=== PATIENT | male | born 1965 | race Caucasian/White ===

== ENCOUNTER 2022-08-23 15:17 | Inpatient (IN) | payer BC, OTHER ==
[2022-08-23 15:55] VITALS: BMI 36.2
[2022-08-23] MEDS ORDERED: ACETAMINOPHEN 1000 MG/100 ML BAG IVPB ONE (16:01)
[2022-08-23] MEDS ORDERED: ACETAMINOPHEN INJECTION 100 ML IVPB ONE (16:10)
[2022-08-23] MEDS ORDERED: LACTATED RINGERS SOLUTION 1000 ML INFUS.BAG IV ONE (16:11)
[2022-08-23] MEDS: ALBUTEROL SO4 2.5/IPRATROPIUM 0.5 INH SOL 3 ML VIAL.NEB. NEB SCH ×2 (16:50→17:15)
[2022-08-23] MEDS ORDERED: ALBUTEROL SO4 2.5/IPRATROPIUM 0.5 INH SOL 3 ML VIAL.NEB. NEB ONE (16:50)
[2022-08-23 17:01] LABS: BASO % 0.4 % (0-2.0); EOS % 0.4 % (0-4.5); HEMATOCRIT 48.8 % (35.4-49); LYMPH % 2.5 % (8-40); MCH 29.1 pg (25.7-33.7); MCHC 32.7 g/dl (32.0-35.9); MEAN PLT VOLUME 7.3 fl (7.5-11.1); MONO % 3.6 % (3.8-10.2); NEUT % 93.1 % (42.8-82.8); PLATELET COUNT 146 10^3/uL (134-434); RBC 5.49 M/mm3 (4.00-5.60); RDW 15.9 % (11.9-15.9); URINE APPEARANCE CLEAR; URINE BILIRUBIN NEGATIVE (NEGATIVE); URINE COLOR YELLOW; URINE GLUCOSE (UA) NEGATIVE (NEGATIVE); URINE KETONE NEGATIVE (NEGATIVE); URINE LEUK ESTERASE NEGATIVE (NEGATIVE); URINE NITRITE NEGATIVE (NEGATIVE); URINE PROTEIN NEGATIVE (NEGATIVE); URINE UROBILINOGEN 0.2 mg/dL (0.2-1.0); WHITE BLOOD COUNT 14.9 K/mm3 (4.0-10.0)
[2022-08-23 17:05] LABS: VENOUS BASE EXCESS 0.9 mmol/L (-2-2); VENOUS O2 SATURATION 47.9 % (70-80); VENOUS PCO2 46.6 mmHg (38-52); VENOUS PH 7.376 (7.310-7.410)
[2022-08-23 17:13] LABS: INR 0.98 (0.83-1.09); PROTHROMBIN TIME (PATIENT) 11.3 SEC (9.7-13.0)
[2022-08-23 17:16] LABS: ACTIVATED PTT 26.2 SECONDS (25.2-36.5)
[2022-08-23 17:25] LABS: ALBUMIN 3.8 g/dl (3.4-5.0); CALCIUM 8.9 mg/dL (8.5-10.1)
[2022-08-23 17:28] LABS: CREATININE 0.9 mg/dL (0.55-1.3)
[2022-08-23 17:30] LABS: BILIRUBIN,TOTAL 1.4 mg/dL (0.2-1); TOT PROT 6.3 g/dl (6.4-8.2)
[2022-08-23 17:33] LABS: N-TERMINAL BNP 112.8 pg/ml (5-125)
[2022-08-23] MEDS ORDERED: AZITHROMYCIN IVPB 500 MG in DEXTROSE 5%-WATER - 250 ML IVPB ONE (17:34)
[2022-08-23] MEDS ORDERED: CEFTRIAXONE 1,000 MG in DEXTROSE 5%-WATER - 50 ML IVPB ONE (17:34)
[2022-08-23] MEDS ORDERED: CEFTRIAXONE 1 GM/50 ML BAG ONE (17:41)
[2022-08-23 18:06] LABS: ANISOCYTOSIS 2+; MACROCYTOSIS 0
[2022-08-23] MEDS ORDERED: AZITHROMYCIN IVPB 500 MG/250 ML BAG IVPB ONE (18:10)
[2022-08-23 21:13] LABS: ARTERIAL BLD GAS O2 SATURATION 96.6 % (95-98); ARTERIAL BLOOD GAS BASE EXCESS 1.1 mmol/L (-2-2); ARTERIAL BLOOD GAS PO2 84.4 mmHg (80-100); ARTERIAL BLOOD GAS pH 7.429 (7.350-7.450)
[2022-08-23 21:15] LABS: ALLENS TEST POSITIVE
[2022-08-23] MEDS ORDERED: PIPERACILLIN/TAZOB 3.375 GM 3.375 GM/50 ML BAG IVPB ONE (21:39)
[2022-08-23] MEDS ORDERED: VANCOMYCIN 1 GRAM (PRE-DOCKED) 1,000 MG/250 ML BAG IVPB SCH (21:45)
[2022-08-23] MEDS ORDERED: VANCOMYCIN 1,000 MG in DEXTROSE 5%-WATER - 250 ML IVPB SCH (21:45)
[2022-08-23] MEDS: PIPERACILLIN/TAZOB 3.375 GM 3.375 GM in DEXTROSE 5%-WATER - 50 ML IVPB SCH ×2 (21:49→21:56)
[2022-08-23] MEDS ORDERED: VANCOMYCIN/WATER FOR INJ (PEG) 1,000 MG/200 ML BAG IVPB ONE (22:08)
[2022-08-24] MEDS ORDERED: predniSONE 10 MG TABLET (UD) PO SCH (01:00)
[2022-08-24] MEDS ORDERED: OSELTAMIVIR PHOSPHATE 45 MG CAPSULE PO SCH (02:15)
[2022-08-24] MEDS ORDERED: BUDESONIDE/FORMETEROL FUMARATE 160/4.5 mcg INHALER IH ONE (03:00)
[2022-08-24] MEDS ORDERED: OSELTAMIVIR PHOSPHATE 75 MG CAPSULE PO SCH (03:28)
[2022-08-24] MEDS ORDERED: predniSONE 10 MG TABLET (UD) ONE (04:32)
[2022-08-24 07:36] LABS: HEMATOCRIT 49.4 % (35.4-49); HEMOGLOBIN 16.2 GM/dL (11.7-16.9); MCH 29.1 pg (25.7-33.7); MCHC 32.8 g/dl (32.0-35.9); MEAN CELL VOLUME 88.6 fl (80-96); MEAN PLT VOLUME 7.5 fl (7.5-11.1); PLATELET COUNT 133 10^3/uL (134-434); RBC 5.57 M/mm3 (4.00-5.60); RDW 16.2 % (11.9-15.9); WHITE BLOOD COUNT 14.5 K/mm3 (4.0-10.0)
[2022-08-24 08:04] LABS: ALBUMIN 3.5 g/dl (3.4-5.0); CALCIUM 9.3 mg/dL (8.5-10.1); CREATININE 0.7 mg/dL (0.55-1.3)
[2022-08-24 08:05] LABS: BLOOD UREA NITROGEN 10.2 mg/dL (7-18); MAGNESIUM 1.8 mg/dL (1.8-2.4)
[2022-08-24 08:06] LABS: BILIRUBIN,TOTAL 1.8 mg/dL (0.2-1); TOT PROT 6.3 g/dl (6.4-8.2)
[2022-08-24 08:54] LABS: ANISOCYTOSIS 0; HELMET CELLS 0; HOWELL-JOLLY BODIES 0; MACROCYTOSIS 0; OVALOCYTE 0; ROULEAU 0; SICKELED CELLS 0; TARGET CELLS 0; TEAR DROP CELLS 0; TOXIC GRANULATION 0
[2022-08-24] MEDS ORDERED: CLOPIDOGREL BISULFATE 75 MG TABLET (FP) ONE (09:03)
[2022-08-24] MEDS ORDERED: predniSONE 20 MG TABLET (UD) ONE ×2 (09:03→22:18)
[2022-08-24] MEDS ORDERED: ENOXAPARIN NA (PORCINE) 40 MG/0.4 ML DISP.SYRIN SQ ONE (09:04)
[2022-08-24] MEDS ORDERED: OSELTAMIVIR PHOSPHATE 75 MG CAPSULE ONE ×2 (09:04→22:18)
[2022-08-24] MEDS: OSELTAMIVIR PHOSPHATE 75 MG CAPSULE PO SCH ×2 (09:51→22:28)
[2022-08-24] MEDS: ENOXAPARIN NA (PORCINE) 40 MG/0.4 ML DISP.SYRIN SQ SCH (09:51)
[2022-08-24] MEDS: predniSONE 20 MG TABLET (UD) PO SCH ×2 (09:51→22:28)
[2022-08-24] MEDS: CLOPIDOGREL BISULFATE 75 MG TABLET (FP) PO SCH (09:51)
[2022-08-24] MEDS: TIOTROPIUM BROMIDE 2.5 MCG (SPIRIVA) RESPIMAT INHALER IH SCH (10:45)
[2022-08-24] MEDS ORDERED: CEFTRIAXONE 1 GM in DEXTROSE 5%-WATER - 50 ML IVPB SCH (12:30)
[2022-08-24] MEDS ORDERED: ACETAMINOPHEN 500 MG TABLET (FP) ONE (14:32)
[2022-08-24] MEDS: ACETAMINOPHEN 500 MG TABLET (FP) PO PRN (14:36)
[2022-08-24] MEDS ORDERED: PIPERACILLIN/TAZOB 3.375 GM 3.375 GM/50 ML BAG IVPB ONE (18:23)
[2022-08-24] MEDS: PIPERACILLIN/TAZOB 3.375 GM 3.375 GM in DEXTROSE 5%-WATER - 50 ML IVPB SCH ×3 (18:28→18:33)
[2022-08-25] MEDS: PIPERACILLIN/TAZOB 3.375 GM 3.375 GM in DEXTROSE 5%-WATER - 50 ML IVPB SCH (01:04)
[2022-08-25] MEDS: ACETAMINOPHEN 500 MG TABLET (FP) PO PRN ×2 (07:22→13:27)
[2022-08-25] MEDS: ENOXAPARIN NA (PORCINE) 40 MG/0.4 ML DISP.SYRIN SQ SCH (09:53)
[2022-08-25] MEDS: TIOTROPIUM BROMIDE 2.5 MCG (SPIRIVA) RESPIMAT INHALER IH SCH (09:53)
[2022-08-25] MEDS: CEFTRIAXONE 1 GM in DEXTROSE 5%-WATER - 50 ML IVPB SCH (09:53)
[2022-08-25] MEDS: OSELTAMIVIR PHOSPHATE 75 MG CAPSULE PO SCH ×2 (09:54→22:06)
[2022-08-25] MEDS: predniSONE 20 MG TABLET (UD) PO SCH ×3 (09:54→22:08)
[2022-08-25] MEDS: CLOPIDOGREL BISULFATE 75 MG TABLET (FP) PO SCH (09:54)
[2022-08-25 12:40] LABS: BASO % 0.4 % (0-2.0); EOS % 0.5 % (0-4.5); HEMATOCRIT 47.1 % (35.4-49); HEMOGLOBIN 15.7 GM/dL (11.7-16.9); LYMPH % 8.9 % (8-40); MCH 29.6 pg (25.7-33.7); MCHC 33.4 g/dl (32.0-35.9); MEAN CELL VOLUME 88.8 fl (80-96); MEAN PLT VOLUME 7.7 fl (7.5-11.1); MONO % 6.1 % (3.8-10.2); NEUT % 84.1 % (42.8-82.8); PLATELET COUNT 121 10^3/uL (134-434); RDW 15.6 % (11.9-15.9)
[2022-08-25 12:49] LABS: BLOOD UREA NITROGEN 16.4 mg/dL (7-18); CALCIUM 9.2 mg/dL (8.5-10.1)
[2022-08-25 12:50] LABS: ALBUMIN 2.9 g/dl (3.4-5.0)
[2022-08-25 12:52] LABS: BILIRUBIN,DIRECT 0.4 mg/dL (0.0-0.2); CREATININE 0.9 mg/dL (0.55-1.3)
[2022-08-25 12:54] LABS: BILIRUBIN,TOTAL 1.6 mg/dL (0.2-1); TOT PROT 5.8 g/dl (6.4-8.2)
[2022-08-25] MEDS ORDERED: DOCUSATE SODIUM 100 MG CAPSULE (FP) PO ONE (18:55)
[2022-08-25] MEDS: ACETAMINOPHEN 1000 MG/100 ML BAG IVPB PRN (20:07)
[2022-08-25] MEDS: POLYETHYLENE GLYCOL (HEALTHYLAX) 3350 17 GM PACKET PO SCH (20:08)
[2022-08-25] MEDS: SENNOSIDES 8.6MG TABLET (FP) PO SCH (22:06)
[2022-08-26] MEDS ORDERED: SODIUM CHLORIDE NASAL SPRAY 44 ML BOTTLE NS PRN (09:06)
[2022-08-26] MEDS: ACETAMINOPHEN 1000 MG/100 ML BAG IVPB PRN (09:12)
[2022-08-26] MEDS: CEFTRIAXONE 1 GM in DEXTROSE 5%-WATER - 50 ML IVPB SCH (09:57)
[2022-08-26] MEDS: OSELTAMIVIR PHOSPHATE 75 MG CAPSULE PO SCH ×2 (09:57→21:26)
[2022-08-26] MEDS: ENOXAPARIN NA (PORCINE) 40 MG/0.4 ML DISP.SYRIN SQ SCH (09:57)
[2022-08-26] MEDS: CLOPIDOGREL BISULFATE 75 MG TABLET (FP) PO SCH (09:57)
[2022-08-26] MEDS: predniSONE 20 MG TABLET (UD) PO SCH (09:57)
[2022-08-26] MEDS: TIOTROPIUM BROMIDE 2.5 MCG (SPIRIVA) RESPIMAT INHALER IH SCH (09:58)
[2022-08-26] MEDS: POTASSIUM CHLORIDE 10 MEQ in SODIUM CHLORIDE 1,000 ML IVPB SCH ×2 (11:45→22:43)
[2022-08-26] MEDS: predniSONE 10 MG TABLET (UD) PO SCH (14:08)
[2022-08-26] MEDS: POLYETHYLENE GLYCOL (HEALTHYLAX) 3350 17 GM PACKET PO SCH (18:51)
[2022-08-26] MEDS: SENNOSIDES 8.6MG TABLET (FP) PO SCH (21:26)
[2022-08-26] MEDS: ACETAMINOPHEN 325 MG TABLET (FP) PO PRN (21:31)
[2022-08-27] MEDS: CLOPIDOGREL BISULFATE 75 MG TABLET (FP) PO SCH (10:08)
[2022-08-27] MEDS: ENOXAPARIN NA (PORCINE) 40 MG/0.4 ML DISP.SYRIN SQ SCH (10:11)
[2022-08-27] MEDS: CEFTRIAXONE 1 GM in DEXTROSE 5%-WATER - 50 ML IVPB SCH (10:11)
[2022-08-27] MEDS: predniSONE 10 MG TABLET (UD) PO SCH (10:11)
[2022-08-27] MEDS: OSELTAMIVIR PHOSPHATE 75 MG CAPSULE PO SCH ×2 (10:13→22:01)
[2022-08-27] MEDS: TIOTROPIUM BROMIDE 2.5 MCG (SPIRIVA) RESPIMAT INHALER IH SCH (10:15)
[2022-08-27] MEDS: ACETAMINOPHEN 325 MG TABLET (FP) PO PRN ×2 (10:22→17:41)
[2022-08-27] MEDS: POLYETHYLENE GLYCOL (HEALTHYLAX) 3350 17 GM PACKET PO SCH (20:08)
[2022-08-27] MEDS: SENNOSIDES 8.6MG TABLET (FP) PO SCH (22:01)
[2022-08-28] MEDS ORDERED: FUROSEMIDE 40 MG/4 ML INJECTABLE VIAL IVPUSH ONE (08:00)
[2022-08-28] MEDS: predniSONE 10 MG TABLET (UD) PO SCH (11:30)
[2022-08-28] MEDS: CEFTRIAXONE 1 GM in DEXTROSE 5%-WATER - 50 ML IVPB SCH (11:30)
[2022-08-28] MEDS: ENOXAPARIN NA (PORCINE) 40 MG/0.4 ML DISP.SYRIN SQ SCH (11:42)
[2022-08-28] MEDS: CLOPIDOGREL BISULFATE 75 MG TABLET (FP) PO SCH (11:43)
[2022-08-28] MEDS: OSELTAMIVIR PHOSPHATE 75 MG CAPSULE PO SCH ×2 (11:44→21:19)
[2022-08-28] MEDS: TIOTROPIUM BROMIDE 2.5 MCG (SPIRIVA) RESPIMAT INHALER IH SCH (12:10)
[2022-08-28] MEDS: ACETAMINOPHEN 325 MG TABLET (FP) PO PRN ×2 (12:33→18:18)
[2022-08-28 12:50] LABS: BASO % 0.3 % (0-2.0); EOS % 0.4 % (0-4.5); HEMATOCRIT 45.4 % (35.4-49); HEMOGLOBIN 15.4 GM/dL (11.7-16.9); LYMPH % 12.2 % (8-40); MCH 29.5 pg (25.7-33.7); MCHC 33.9 g/dl (32.0-35.9); MEAN CELL VOLUME 87.1 fl (80-96); MEAN PLT VOLUME 7.2 fl (7.5-11.1); MONO % 5.1 % (3.8-10.2); PLATELET COUNT 154 10^3/uL (134-434); RBC 5.21 M/mm3 (4.00-5.60); RDW 15.5 % (11.9-15.9); WHITE BLOOD COUNT 7.2 K/mm3 (4.0-10.0)
[2022-08-28 13:19] LABS: BLOOD UREA NITROGEN 5.7 mg/dL (7-18); CALCIUM 8.5 mg/dL (8.5-10.1)
[2022-08-28 13:23] LABS: CREATININE 0.6 mg/dL (0.55-1.3)
[2022-08-28 15:55] LABS: ALBUMIN 2.9 g/dl (3.4-5.0)
[2022-08-28 15:57] LABS: BILIRUBIN,DIRECT 0.3 mg/dL (0.0-0.2)
[2022-08-28 15:59] LABS: BILIRUBIN,TOTAL 0.8 mg/dL (0.2-1)
[2022-08-28 16:00] LABS: TOT PROT 5.9 g/dl (6.4-8.2)
[2022-08-28] MEDS ORDERED: POTASSIUM CHLORIDE ORAL LIQUID 20 MEQ/15 ML PO ONE (16:35)
[2022-08-28] MEDS: KCL 10 MEQ IVPB 10 MEQ/100 ML INFUS.BAG IVPB SCH ×3 (17:42→20:40)
[2022-08-28] MEDS: POLYETHYLENE GLYCOL (HEALTHYLAX) 3350 17 GM PACKET PO SCH (19:04)
[2022-08-28] MEDS: SENNOSIDES 8.6MG TABLET (FP) PO SCH (21:19)
[2022-08-29] MEDS: ACETAMINOPHEN 325 MG TABLET (FP) PO PRN ×3 (02:20→22:45)
[2022-08-29] MEDS: predniSONE 10 MG TABLET (UD) PO SCH ×2 (10:34→14:12)
[2022-08-29] MEDS: CLOPIDOGREL BISULFATE 75 MG TABLET (FP) PO SCH (10:34)
[2022-08-29] MEDS: ENOXAPARIN NA (PORCINE) 40 MG/0.4 ML DISP.SYRIN SQ SCH (10:34)
[2022-08-29] MEDS: CEFTRIAXONE 1 GM in DEXTROSE 5%-WATER - 50 ML IVPB SCH (10:35)
[2022-08-29] MEDS: TIOTROPIUM BROMIDE 2.5 MCG (SPIRIVA) RESPIMAT INHALER IH SCH (11:59)
[2022-08-29 12:31] LABS: BLOOD UREA NITROGEN 8.6 mg/dL (7-18)
[2022-08-29 12:32] LABS: CALCIUM 8.5 mg/dL (8.5-10.1); MAGNESIUM 1.9 mg/dL (1.8-2.4)
[2022-08-29 12:33] LABS: ALBUMIN 2.6 g/dl (3.4-5.0)
[2022-08-29 12:35] LABS: CREATININE 0.6 mg/dL (0.55-1.3)
[2022-08-29 12:37] LABS: BILIRUBIN,TOTAL 2.2 mg/dL (0.2-1); TOT PROT 5.7 g/dl (6.4-8.2)
[2022-08-29] MEDS ORDERED: ALBUTEROL SO4 0.083% IH SOL 2.5 MG/3 ML VIAL.NEB. NEB PRN (12:47)
[2022-08-29] MEDS ORDERED: POTASSIUM CHLORIDE TABS 10 MEQ TABLET.ER (FP) PO ONE (13:06)
[2022-08-29] MEDS: ALBUTEROL SO4 2.5/IPRATROPIUM 0.5 INH SOL 3 ML VIAL.NEB. NEB SCH ×2 (13:30→20:51)
[2022-08-29] MEDS ORDERED: POTASSIUM CHLORIDE TABS 20 MEQ TABLET.ER (FP) PO ONE (13:54)
[2022-08-29] MEDS: POLYETHYLENE GLYCOL (HEALTHYLAX) 3350 17 GM PACKET PO SCH (18:45)
[2022-08-29] MEDS: SENNOSIDES 8.6MG TABLET (FP) PO SCH (22:46)
[2022-08-30] MEDS: ALBUTEROL SO4 2.5/IPRATROPIUM 0.5 INH SOL 3 ML VIAL.NEB. NEB SCH ×3 (07:50→19:56)
[2022-08-30] MEDS: ENOXAPARIN NA (PORCINE) 40 MG/0.4 ML DISP.SYRIN SQ SCH (09:45)
[2022-08-30] MEDS: CLOPIDOGREL BISULFATE 75 MG TABLET (FP) PO SCH (09:46)
[2022-08-30] MEDS: TIOTROPIUM BROMIDE 2.5 MCG (SPIRIVA) RESPIMAT INHALER IH SCH (09:46)
[2022-08-30] MEDS: predniSONE 10 MG TABLET (UD) PO SCH (09:49)
[2022-08-30] MEDS: ACETAMINOPHEN 325 MG TABLET (FP) PO PRN ×2 (11:28→18:43)
[2022-08-30 13:18] LABS: HEMOGLOBIN 14.7 GM/dL (11.7-16.9); MCH 29.4 pg (25.7-33.7); MCHC 33.5 g/dl (32.0-35.9); MEAN CELL VOLUME 87.9 fl (80-96); MEAN PLT VOLUME 7.3 fl (7.5-11.1); PLATELET COUNT 232 10^3/uL (134-434); RBC 5.01 M/mm3 (4.00-5.60); RDW 15.6 % (11.9-15.9); WHITE BLOOD COUNT 5.4 K/mm3 (4.0-10.0)
[2022-08-30 13:24] LABS: BLOOD UREA NITROGEN 8.6 mg/dL (7-18); CALCIUM 8.6 mg/dL (8.5-10.1)
[2022-08-30 13:27] LABS: CREATININE 0.6 mg/dL (0.55-1.3)
[2022-08-30] MEDS ORDERED: POLYETHYLENE GLYCOL (HEALTHYLAX) 3350 17 GM PACKET PO SCH (19:45)
[2022-08-30] MEDS: SENNOSIDES 8.6MG TABLET (FP) PO SCH (21:24)
[2022-08-31] MEDS: ALBUTEROL SO4 2.5/IPRATROPIUM 0.5 INH SOL 3 ML VIAL.NEB. NEB SCH ×3 (08:00→21:27)
[2022-08-31] MEDS: CLOPIDOGREL BISULFATE 75 MG TABLET (FP) PO SCH (09:25)
[2022-08-31] MEDS: POLYETHYLENE GLYCOL (HEALTHYLAX) 3350 17 GM PACKET PO SCH (09:26)
[2022-08-31] MEDS: predniSONE 10 MG TABLET (UD) PO SCH (09:30)
[2022-08-31] MEDS: TIOTROPIUM BROMIDE 2.5 MCG (SPIRIVA) RESPIMAT INHALER IH SCH (09:30)
[2022-08-31 11:53] LABS: ALBUMIN 2.8 g/dl (3.4-5.0); BLOOD UREA NITROGEN 6.4 mg/dL (7-18); MAGNESIUM 2.2 mg/dL (1.8-2.4)
[2022-08-31 11:56] LABS: CREATININE 0.6 mg/dL (0.55-1.3)
[2022-08-31 11:57] LABS: BILIRUBIN,TOTAL 1.1 mg/dL (0.2-1); TOT PROT 6.1 g/dl (6.4-8.2)
[2022-08-31] MEDS: ACETAMINOPHEN 325 MG TABLET (FP) PO PRN (12:28)
[2022-08-31] MEDS: SENNOSIDES 8.6MG TABLET (FP) PO SCH (21:55)
[2022-09-01] MEDS: ALBUTEROL SO4 2.5/IPRATROPIUM 0.5 INH SOL 3 ML VIAL.NEB. NEB SCH ×3 (08:56→20:00)
[2022-09-01] MEDS: CLOPIDOGREL BISULFATE 75 MG TABLET (FP) PO SCH (09:32)
[2022-09-01] MEDS: POLYETHYLENE GLYCOL (HEALTHYLAX) 3350 17 GM PACKET PO SCH (09:32)
[2022-09-01] MEDS: ACETAMINOPHEN 325 MG TABLET (FP) PO PRN (09:32)
[2022-09-01] MEDS: TIOTROPIUM BROMIDE 2.5 MCG (SPIRIVA) RESPIMAT INHALER IH SCH (09:32)
[2022-09-01] MEDS: predniSONE 10 MG TABLET (UD) PO SCH (09:32)
[2022-09-01] MEDS: SENNOSIDES 8.6MG TABLET (FP) PO SCH (21:39)
[2022-09-02] MEDS: ALBUTEROL SO4 2.5/IPRATROPIUM 0.5 INH SOL 3 ML VIAL.NEB. NEB SCH ×3 (07:50→21:21)
[2022-09-02] MEDS: CLOPIDOGREL BISULFATE 75 MG TABLET (FP) PO SCH (09:47)
[2022-09-02] MEDS: TIOTROPIUM BROMIDE 2.5 MCG (SPIRIVA) RESPIMAT INHALER IH SCH (09:47)
[2022-09-02] MEDS: POLYETHYLENE GLYCOL (HEALTHYLAX) 3350 17 GM PACKET PO SCH (09:47)
[2022-09-02] MEDS: predniSONE 10 MG TABLET (UD) PO SCH ×2 (09:47→09:52)
[2022-09-02] MEDS: ACETAMINOPHEN 325 MG TABLET (FP) PO PRN ×2 (10:49→19:07)
[2022-09-02] MEDS: ASPIRIN COATED 81 MG TABLET.EC PO SCH (11:28)
[2022-09-02] MEDS: SENNOSIDES 8.6MG TABLET (FP) PO SCH (21:52)
[2022-09-03] MEDS: ALBUTEROL SO4 2.5/IPRATROPIUM 0.5 INH SOL 3 ML VIAL.NEB. NEB SCH ×3 (07:39→20:19)
[2022-09-03] MEDS: ASPIRIN COATED 81 MG TABLET.EC PO SCH (09:16)
[2022-09-03] MEDS: POLYETHYLENE GLYCOL (HEALTHYLAX) 3350 17 GM PACKET PO SCH (09:16)
[2022-09-03] MEDS: CLOPIDOGREL BISULFATE 75 MG TABLET (FP) PO SCH (09:17)
[2022-09-03] MEDS: predniSONE 10 MG TABLET (UD) PO SCH (09:20)
[2022-09-03] MEDS: TIOTROPIUM BROMIDE 2.5 MCG (SPIRIVA) RESPIMAT INHALER IH SCH (09:20)
[2022-09-03 09:41] LABS: HEMATOCRIT 42.8 % (35.4-49); HEMOGLOBIN 14.1 GM/dL (11.7-16.9); MCH 28.9 pg (25.7-33.7); MCHC 32.9 g/dl (32.0-35.9); MEAN PLT VOLUME 6.7 fl (7.5-11.1); PLATELET COUNT 369 10^3/uL (134-434); RBC 4.87 M/mm3 (4.00-5.60); RDW 15.7 % (11.9-15.9); WHITE BLOOD COUNT 9.6 K/mm3 (4.0-10.0)
[2022-09-03 10:06] LABS: BLOOD UREA NITROGEN 7.4 mg/dL (7-18); CALCIUM 8.9 mg/dL (8.5-10.1)
[2022-09-03 10:07] LABS: ALBUMIN 3.1 g/dl (3.4-5.0)
[2022-09-03 10:10] LABS: CREATININE 0.6 mg/dL (0.55-1.3)
[2022-09-03 10:11] LABS: BILIRUBIN,TOTAL 1.4 mg/dL (0.2-1); TOT PROT 6.2 g/dl (6.4-8.2)
[2022-09-03 10:49] LABS: ANISOCYTOSIS 0; HELMET CELLS 0; HOWELL-JOLLY BODIES 0; MACROCYTOSIS 0; OVALOCYTE 0; ROULEAU 0; SICKELED CELLS 0; TARGET CELLS 0; TEAR DROP CELLS 0; TOXIC GRANULATION 0
[2022-09-03] MEDS: ACETAMINOPHEN 325 MG TABLET (FP) PO PRN (12:31)
[2022-09-03] MEDS: SENNOSIDES 8.6MG TABLET (FP) PO SCH (23:20)
[2022-09-04] MEDS: ALBUTEROL SO4 2.5/IPRATROPIUM 0.5 INH SOL 3 ML VIAL.NEB. NEB SCH ×3 (07:38→20:05)
[2022-09-04] MEDS: POLYETHYLENE GLYCOL (HEALTHYLAX) 3350 17 GM PACKET PO SCH (10:49)
[2022-09-04] MEDS: ASPIRIN COATED 81 MG TABLET.EC PO SCH (10:49)
[2022-09-04] MEDS: CLOPIDOGREL BISULFATE 75 MG TABLET (FP) PO SCH (10:50)
[2022-09-04] MEDS: predniSONE 10 MG TABLET (UD) PO SCH (10:50)
[2022-09-04] MEDS: TIOTROPIUM BROMIDE 2.5 MCG (SPIRIVA) RESPIMAT INHALER IH SCH (10:50)
[2022-09-04] MEDS: ACETAMINOPHEN 325 MG TABLET (FP) PO PRN (13:56)
[2022-09-04] MEDS: SENNOSIDES 8.6MG TABLET (FP) PO SCH (22:07)
[2022-09-05] MEDS: ALBUTEROL SO4 2.5/IPRATROPIUM 0.5 INH SOL 3 ML VIAL.NEB. NEB SCH ×3 (08:09→21:38)
[2022-09-05] MEDS: POLYETHYLENE GLYCOL (HEALTHYLAX) 3350 17 GM PACKET PO SCH (10:46)
[2022-09-05] MEDS: predniSONE 10 MG TABLET (UD) PO SCH ×2 (10:46→10:58)
[2022-09-05] MEDS: CLOPIDOGREL BISULFATE 75 MG TABLET (FP) PO SCH (10:46)
[2022-09-05] MEDS: ASPIRIN COATED 81 MG TABLET.EC PO SCH (10:46)
[2022-09-05] MEDS: TIOTROPIUM BROMIDE 2.5 MCG (SPIRIVA) RESPIMAT INHALER IH SCH (10:46)
[2022-09-05 12:36] VITALS: RESP 20
[2022-09-05] MEDS: ACETAMINOPHEN 325 MG TABLET (FP) PO PRN (14:43)
[2022-09-05] MEDS: SENNOSIDES 8.6MG TABLET (FP) PO SCH (21:07)
[2022-09-06] MEDS: ALBUTEROL SO4 2.5/IPRATROPIUM 0.5 INH SOL 3 ML VIAL.NEB. NEB SCH ×3 (07:50→20:10)
[2022-09-06] MEDS: ASPIRIN COATED 81 MG TABLET.EC PO SCH (10:40)
[2022-09-06] MEDS: POLYETHYLENE GLYCOL (HEALTHYLAX) 3350 17 GM PACKET PO SCH (10:40)
[2022-09-06] MEDS: predniSONE 10 MG TABLET (UD) PO SCH (10:45)
[2022-09-06] MEDS: TIOTROPIUM BROMIDE 2.5 MCG (SPIRIVA) RESPIMAT INHALER IH SCH (11:20)
[2022-09-06] MEDS: CLOPIDOGREL BISULFATE 75 MG TABLET (FP) PO SCH (11:20)
[2022-09-06 11:53] LABS: HEMATOCRIT 41.7 % (35.4-49); HEMOGLOBIN 13.7 GM/dL (11.7-16.9); MCH 28.8 pg (25.7-33.7); MCHC 32.8 g/dl (32.0-35.9); MEAN CELL VOLUME 87.6 fl (80-96); MEAN PLT VOLUME 6.9 fl (7.5-11.1); PLATELET COUNT 473 10^3/uL (134-434); RBC 4.76 M/mm3 (4.00-5.60); WHITE BLOOD COUNT 8.7 K/mm3 (4.0-10.0)
[2022-09-06 12:18] LABS: BLOOD UREA NITROGEN 5.1 mg/dL (7-18); CALCIUM 9.2 mg/dL (8.5-10.1); MAGNESIUM 2.2 mg/dL (1.8-2.4)
[2022-09-06 12:21] LABS: BILIRUBIN,TOTAL 1.4 mg/dL (0.2-1); CREATININE 0.7 mg/dL (0.55-1.3); TOT PROT 6.2 g/dl (6.4-8.2)
[2022-09-06] MEDS: SENNOSIDES 8.6MG TABLET (FP) PO SCH (21:09)
[2022-09-07] MEDS: ALBUTEROL SO4 2.5/IPRATROPIUM 0.5 INH SOL 3 ML VIAL.NEB. NEB SCH (07:22)
[2022-09-07] MEDS: ASPIRIN COATED 81 MG TABLET.EC PO SCH (09:47)
[2022-09-07] MEDS: CLOPIDOGREL BISULFATE 75 MG TABLET (FP) PO SCH (09:47)
[2022-09-07] MEDS: POLYETHYLENE GLYCOL (HEALTHYLAX) 3350 17 GM PACKET PO SCH (09:48)
[2022-09-07] MEDS: TIOTROPIUM BROMIDE 2.5 MCG (SPIRIVA) RESPIMAT INHALER IH SCH (09:48)
[2022-09-07] MEDS: predniSONE 10 MG TABLET (UD) PO SCH (09:51)
[2022-09-07 14:48] VITALS: BP 106/68; PULSE 100; TEMP 97.9
== END 2022-09-07 14:59 | DRG 193 ==
LOC: JER 15:17 → JERBED 19:10 → J5S 08-25 00:15 → J6S 09-01 21:43
PROVIDERS: ADMIT Internal Medicine; ATTEND Family Medicine
DX: J11.00 Influenza due to unidentified influenza virus with unspecified type of pneumonia (principal); J96.21 Acute and chronic respiratory failure with hypoxia; J84.10 Pulmonary fibrosis, unspecified; D72.829 Elevated white blood cell count, unspecified; I25.10 Atherosclerotic heart disease of native coronary artery without angina pectoris; E80.6 Other disorders of bilirubin metabolism; E87.6 Hypokalemia; Z95.5 Presence of coronary angioplasty implant and graft; N18.9 Chronic kidney disease, unspecified; D69.6 Thrombocytopenia, unspecified; I25.2 Old myocardial infarction; Z85.850 Personal history of malignant neoplasm of thyroid
CPT/HCPCS: 0241U-QW; 36415; 36600; 71045-TC-FY; 71250-TC; 76700-TC; 80048; 80053; 80076; 81003; 82248; 82550; 82553; 82803; 83605; 83735; 83880; 84100; 84484; 85025; 85027; 85610; 85730; 86850; 86900; 86901; 87040; 87086; 93005; 93010; 94010; 94640; 94761; 97116-GP; 97162-GP; 99285-25; C9803-CS; U0003; U0005